=== PATIENT | female | born 2000 | race Caucasian/White ===

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

== ENCOUNTER 2020-12-10 14:50 | Emergency (ER) | payer MEDICAID, OTHER ==
[2020-12-10] MEDS ORDERED: Sodium Chloride 0.9% 1,000 ML IV ONE (14:53)
--- NOTE | 2020-12-10 14:53 | EDM.PDOC ---
ED HPI GENERAL MEDICAL PROBLEM - General Stated Complaint: VOMITING/DIARRHEA Time Seen by Provider: 12/10/20 14:52 Source of Information: Reports: Patient History Limitations: Reports: No Limitations - History of Present Illness INITIAL COMMENTS - FREE TEXT/NARRATIVE: HISTORY AND PHYSICAL: History of present illness: Patient is a 20-year-old female who presents to the emergency room with complaints of nausea, vomiting and diarrhea since last evening around 7 PM. She states earlier in the week her child had had the stomach bug as well, this is resolved. Otherwise has not been around anyone who has been ill. No recent travel. No recent antibiotic usage. Patient denies any fever, chills, headache, change in vision, syncope or near syncope. Denies any chest pain, back pain, shortness of breath or cough. Denies any abdominal pain, constipation or dysuria. Has not noted any blood in urine or stool. States there is a slim chance of . Patient has not been able to eat or drink over the past day. Review of systems: As per history of present illness and below otherwise all systems reviewed and negative. Past medical history: As per history of present illness and as reviewed below otherwise noncontributory. Surgical history: As per history of present illness and as reviewed below otherwise noncontributory. Social history: See social history for further information Family history: As per history of present illness and as reviewed below otherwise noncontributory. Physical exam: General: Well developed and well nourished 20-year-old female. Alert and orientated x 3. Nontoxic in appearance and in no acute distress. Vital signs are stable and have been reviewed by me. Nursing notes were reviewed. HEENT: Atraumatic, normocephalic, pupils equal and reactive bilaterally, negative for conjunctival pallor or scleral icterus, mucous membranes moist, trachea midline. No drooling or trismus noted. No meningeal signs. No hot potato voice noted. Lungs: Clear to auscultation bilaterally. No wheezes, rales, or rhonchi. Chest nontender. Normal work of breathing, no accessory muscles used. Heart: S1S2, regular rate and rhythm without overt murmur, gallops, or rubs. No JVD. No peripheral edema Abdomen: Soft, nondistended, nontender. Normoactive bowel sounds. Negative for masses or costovertebral tenderness. Skin: Intact, warm, dry. No lesions or rashes noted. Hematologic: No petechiae or purpra. Mucosa appropriate color and normal nail bed color and refill. Extremities: Atraumatic, moves all extremities per self without difficulty or deficits. Neurovascular unremarkable. Neuro: Awake, alert, oriented. Cranial nerves II through XII unremarkable. Cerebellum unremarkable. Motor and sensory unremarkable throughout. Exam nonfocal. Psychiatric: Mood and affect are appropriate. Normal thought process. Answering questions appropriately. Notes: *This patient was seen and evaluated during the 2019 SARS-CoV-2 novel coronavirus pandemic period. Community viral transmission is ongoing at time of this encounter and the emergency department is operating under pandemic response procedures. Patient is a 20-year-old female who presents to the emergency room with complaints of nausea, vomiting and diarrhea since last evening. She states she has not been able to keep anything down and does feel slightly dehydrated. States her tummy is sore from the vomiting and diarrhea although has no abdominal tenderness or exquisite pain. She is agreeable to basic lab work and IV fluids/Zofran. Patient was unable to give a stool sample while here in the emergency room. Lab work is unremarkable. Vital signs are stable. She feels much improved. I have talked with the patient about today's findings, in addition to providing specific details for plan of care. Reassessment at the time of disposition demonstrates that the patient is in no acute distress. The patient is stable for discharge, counseling was provided and we discussed in great detail signs and symptoms that would prompt them to return to the Emergency Department. Medication, follow up and supportive care measures were reviewed and discussed. Voices understanding and is agreeable to plan of care. Denies any further questions or concerns at this time. Diagnostics: CBC, CMP, stool study, UA, urine , lipase Therapeutics: IV fluid, Zofran Prescription: Zofran Impression: Gastroenteritis Plan: 1. You were evaluated today on an emergent basis. Your lab work was normal. [place] diet and advance as tolerated. Small frequent sips of fluid to prevent dehydration. You can use the Zofran as needed for nausea management. 2. You can alternate Tylenol and ibuprofen as needed for pain and fever management. 3. We encourage you to follow up with your primary care provider and/or recommended specialist in the next few days for re-evaluation and further care/management. 4. If your symptoms should worsen, new symptoms develop or any of the signs and symptoms we discussed should arise please return to the emergency room or call 911 (if needed). Definitive disposition and diagnosis as appropriate pending reevaluation and review of above. abdomen Pain Score (Numeric/FACES): 4 - Related Data Allergies Allergy/AdvReac Type Severity Reaction Status Date / Time amoxicillin Allergy Rash Verified 12/10/20 15:36 codeine AdvReac Vomiting Verified 12/10/20 15:36 Home Meds: Home Meds Ondansetron [Zofran ODT] 4 mg PO Q6H PRN #8 tab.dis 12/10/20 [Rx] Past Medical History - Past Health History Medical/Surgical History: Denies Medical/Surgical History HEENT History: Reports: Impaired Vision Cardiovascular History: Reports: None Respiratory History: Reports: None Gastrointestinal History: Reports: Chronic Constipation Genitourinary History: Reports: None [employer] History: Reports: Musculoskeletal History: Reports: None Neurological History: Reports: None Psychiatric History: Reports: None Endocrine/Metabolic History: Reports: None Hematologic History: Reports: None Immunologic History: Reports: None Oncologic (Cancer) History: Reports: None Dermatologic History: Reports: None - Infectious Disease History Infectious Disease History: Reports: None - Past Surgical History Head Surgeries/Procedures: Reports: None HEENT Surgical History: Reports: None Cardiovascular Surgical History: Reports: None Respiratory Surgical History: Reports: None GI Surgical History: Reports: Colonoscopy Female Surgical History: Reports: None Endocrine Surgical History: Reports: None Neurological Surgical History: Reports: None Musculoskeletal Surgical History: Reports: None Social & Family History - Family History Family Medical History: No Pertinent Family History HEENT: Reports: None Cardiac: Reports: None Respiratory: Reports: None GI: Reports: Irritable Bowel Syndrome : Reports: None OBGYN: Reports: Musculoskeletal: Reports: None Neurological: Reports: Migraines Psychiatric: Reports: ADD, ADHD, Anxiety, Autism, Bipolar, Depression, Eating Disorders, Emotional Problems, Hallucinations, Mood Swings, OCD, Panic Attack, PTSD, Suicide Attempt Endocrine/Metabolic: Reports: None Hematologic: Reports: None Immunologic: Reports: None Dermatologic: Reports: None Oncologic: Reports: Skin - Caffeine Use Caffeine Use: Reports: Coffee, Soda, Tea ED ROS GENERAL - Review of Systems Review Of Systems: Comprehensive ROS is negative, except as noted in HPI. ED EXAM, GI/ABD - Physical Exam Exam: See Below (See dictation) Course - Vital Signs Last Recorded V/S: Last Vital Signs Temp 98.2 F 12/10/20 16:36 Pulse 98 12/10/20 16:36 Resp 18 12/10/20 16:36 BP 101/61 12/10/20 16:36 Pulse Ox 98 12/10/20 16:36 - Orders/Labs/Meds Orders: Active Orders 24 hr Category Date Time Status CAMPYLOBACTER CULT [MREF] Stat Lab 12/10/20 14:53 Ordered OVA & PARASITES BY IMMUNOASSAY [MREF] Stat Lab 12/10/20 14:53 Ordered STOOL CULTURE/SHIGA TOXIN [MREF] Stat Lab 12/10/20 14:53 Ordered UA W/MICROSCOPIC [URIN] Stat Lab 12/10/20 15:59 Results Labs: Laboratory Tests 12/10/20 12/10/20 12/10/20 Range/Units 15:26 15:26 15:59 WBC 7.94 (4.0-11.0) K/uL RBC 5.15 (4.30-5.90) M/uL Hgb 15.2 (12.0-16.0) g/dL Hct 45.5 (36.0-46.0) % MCV 88.3 (80.0-98.0) fL MCH 29.5 (27.0-32.0) pg MCHC 33.4 (31.0-37.0) g/dL RDW Std Deviation 42.7 (28.0-62.0) fl RDW Coeff of Frank 13 (11.0-15.0) % Plt Count 259 (150-400) K/uL MPV 10.60 (7.40-12.00) fL Add Manual Diff YES Neutrophils % (Manual) 67 (48.0-80.0) % Band Neutrophils % 14 % Lymphocytes % (Manual) 10 L (16.0-40.0) % Monocytes % (Manual) 9 (0.0-15.0) % Absolute Seg Neuts 5.3 (1.4-5.7) Band Neutrophils # 1.1 Lymphocytes # (Manual) 0.8 (0.6-2.4) Monocytes # (Manual) 0.7 (0.0-0.8) Sodium 139 (136-145) mmol/L Potassium 3.9 (3.5-5.1) mmol/L Chloride 103 (98-107) mmol/L Carbon Dioxide 25.0 (21.0-32.0) mmol/L BUN 17 (7.0-18.0) mg/dL Creatinine 0.8 (0.6-1.0) mg/dL Est Cr Clr Drug Dosing 92.37 mL/min Estimated GFR (MDRD) > 60.0 ml/min Glucose 96 (74-106) mg/dL Calcium 8.6 (8.5-10.1) mg/dL Total Bilirubin 0.6 (0.2-1.0) mg/dL AST 17 (15-37) IU/L ALT 26 (14-63) IU/L Alkaline Phosphatase 68 (46-116) U/L Total Protein 7.8 (6.4-8.2) g/dL Albumin 3.8 (3.4-5.0) g/dL Globulin 4.0 (2.6-4.0) g/dL Albumin/Globulin Ratio 0.9 (0.9-1.6) Lipase 43 L (73-393) U/L Urine Color YELLOW Urine Appearance CLEAR Urine pH 5.5 (5.0-8.0) Ur Specific [place] >= 1.030 (1.001-1.035) Urine Protein TRACE H (NEGATIVE) mg/dL Urine Glucose (UA) NEGATIVE (NEGATIVE) mg/dL Urine Ketones TRACE H (NEGATIVE) mg/dL Urine Occult Blood NEGATIVE (NEGATIVE) Urine Nitrite NEGATIVE (NEGATIVE) Urine Bilirubin NEGATIVE (NEGATIVE) Urine Urobilinogen 0.2 (<2.0) EU/dL Ur Leukocyte Esterase NEGATIVE (NEGATIVE) Urine HCG, Qual (NEGATIVE) 12/10/20 Range/Units 15:59 WBC (4.0-11.0) K/uL RBC (4.30-5.90) M/uL Hgb (12.0-16.0) g/dL Hct (36.0-46.0) % MCV (80.0-98.0) fL MCH (27.0-32.0) pg MCHC (31.0-37.0) g/dL RDW Std Deviation (28.0-62.0) fl RDW Coeff of Frank (11.0-15.0) % Plt Count (150-400) K/uL MPV (7.40-12.00) fL Add Manual Diff Neutrophils % (Manual) (48.0-80.0) % Band Neutrophils % % Lymphocytes % (Manual) (16.0-40.0) % Monocytes % (Manual) (0.0-15.0) % Absolute Seg Neuts (1.4-5.7) Band Neutrophils # Lymphocytes # (Manual) (0.6-2.4) Monocytes # (Manual) (0.0-0.8) Sodium (136-145) mmol/L Potassium (3.5-5.1) mmol/L Chloride (98-107) mmol/L Carbon Dioxide (21.0-32.0) mmol/L BUN (7.0-18.0) mg/dL Creatinine (0.6-1.0) mg/dL Est Cr Clr Drug Dosing mL/min Estimated GFR (MDRD) ml/min Glucose (74-106) mg/dL Calcium (8.5-10.1) mg/dL Total Bilirubin (0.2-1.0) mg/dL AST (15-37) IU/L ALT (14-63) IU/L Alkaline Phosphatase (46-116) U/L Total Protein (6.4-8.2) g/dL Albumin (3.4-5.0) g/dL Globulin (2.6-4.0) g/dL Albumin/Globulin Ratio (0.9-1.6) Lipase (73-393) U/L Urine Color Urine Appearance Urine pH (5.0-8.0) Ur Specific [place] (1.001-1.035) Urine Protein (NEGATIVE) mg/dL Urine Glucose (UA) (NEGATIVE) mg/dL Urine Ketones (NEGATIVE) mg/dL Urine Occult Blood (NEGATIVE) Urine Nitrite (NEGATIVE) Urine Bilirubin (NEGATIVE) Urine Urobilinogen (<2.0) EU/dL Ur Leukocyte Esterase (NEGATIVE) Urine HCG, Qual NEGATIVE (NEGATIVE) Meds: Medications Discontinued Medications Generic Name Dose Route Start Last Admin Trade Name Freq PRN Reason Stop Dose Admin Sodium Chloride 1,000 mls @ 999 mls/hr 12/10/20 14:53 12/10/20 15:31 Normal Saline IV 12/10/20 15:53 999 mls/hr STAT ONE Administration Ondansetron HCl 4 mg 12/10/20 15:23 12/10/20 15:32 Ondansetron 4 Mg/2 Ml Sdv IVPUSH 12/10/20 15:24 4 mg ONETIME ONE Administration Departure - Departure Time of Disposition: 16:41 Disposition: Home, Self-Care 01 Clinical Impression: Gastroenteritis - Discharge Information Prescriptions: Ondansetron [Zofran ODT] 4 mg PO Q6H PRN #8 tab.dis PRN Reason: Nausea Instructions: Viral Gastroenteritis, Adult, [id number] Referrals: PCP,None [Primary Care Provider] - Additional Instructions: The following information is given to patients seen in the emergency department who are being discharged to home. This information is to outline your options for follow-up care. We provide all patients seen in our emergency department with a follow-up referral. The need for follow-up, as well as the timing and circumstances, are variable depending upon the specifics of your emergency department visit. If you don't have a primary care physician on staff, we will provide you with a referral. We always advise you to contact your personal physician following an emergency department visit to inform them of the circumstance of the visit and for follow-up with them and/or the need for any referrals to a consulting specialist. The emergency department will also refer you to a specialist when appropriate. This referral assures that you have the opportunity for follow-up care with a specialist. All of these measure are taken in an effort to provide you with optimal care, which includes your follow-up. Under all circumstances we always encourage you to contact your private physician who remains a resource for coordinating your care. When calling for follow-up care, please make the office aware that this follow-up is from your recent emergency room visit. If for any reason you are refused follow-up, please contact the [facility] Emergency Department at and asked to speak to the emergency department charge nurse. [facility] [address] [place] [address] [address] Thank you for choosing the [facility] emergency department in [place] for your medical needs today. It was a pleasure caring for you. Today you were seen in the emergency department for nausea and vomiting. 1. You were evaluated today on an emergent basis. Your lab work was normal. [place] diet and advance as tolerated. Small frequent sips of fluid to prevent dehydration. You can use the Zofran as needed for nausea management. 2. You can alternate Tylenol and ibuprofen as needed for pain and fever management. 3. We encourage you to follow up with your primary care provider and/or recommended specialist in the next few days for re-evaluation and further care/management. 4. If your symptoms should worsen, new symptoms develop or any of the signs and symptoms we discussed should arise please return to the emergency room or call 911 (if needed). Sepsis Event Note (ED) - Focused Exam Vital Signs: Vital Signs Temp Pulse Resp BP Pulse Ox 12/10/20 16:36 98.2 F 98 18 101/61 98 12/10/20 15:34 98.1 F 114 H 16 125/62 99 - My Orders Last 24 Hours: My Active Orders 12/10/20 14:53 CAMPYLOBACTER CULT [MREF] Stat OVA & PARASITES BY IMMUNOASSAY [MREF] Stat STOOL CULTURE/SHIGA TOXIN [MREF] Stat 12/10/20 15:59 UA W/MICROSCOPIC [URIN] Stat - Assessment/Plan Last 24 Hours: My Active Orders 12/10/20 14:53 CAMPYLOBACTER CULT [MREF] Stat OVA & PARASITES BY IMMUNOASSAY [MREF] Stat STOOL CULTURE/SHIGA TOXIN [MREF] Stat 12/10/20 15:59 UA W/MICROSCOPIC [URIN] Stat
[2020-12-10] MEDS ORDERED: Ondansetron 4 MG/2 ML SDV IVPUSH ONE (15:23)
[2020-12-10 16:39] LABS: BLOOD UREA NITROGEN,BUN 17 mg/dL (7.0-18.0); CHLORIDE,CL 103 mmol/L (98-107); GLUCOSE RANDOM 96 mg/dL (74-106); LIPASE 43 U/L (73-393); POTASSIUM,K 3.9 mmol/L (3.5-5.1); SODIUM,NA 139 mmol/L (136-145)
[2020-12-10 17:38] VITALS: BP 118/72; PULSE 78
== END 2020-12-10 16:50 | disposition home or self-care (01) ==
LOC: MW.ED 14:50
DX: K52.9 Noninfective gastroenteritis and colitis, unspecified (principal); Z88.0 Allergy status to penicillin; Z88.5 Allergy status to narcotic agent
CPT/HCPCS: 36415; 80053; 81001; 81025; 83690; 85025; 96374; 99284; J2405; J7030; 99283

== ENCOUNTER 2021-06-10 16:56 | Emergency (ER) | payer MEDICAID, OTHER ==
[2021-06-10] MEDS ORDERED: Morphine 4 MG/ML VIAL IVPUSH ONE (17:10)
[2021-06-10] MEDS ORDERED: Ketorolac 30 MG/ML SDV IVPUSH ONE (17:10)
[2021-06-10] MEDS ORDERED: Ondansetron 4 MG/2 ML SDV IVPUSH ONE (17:10)
--- NOTE | 2021-06-10 17:13 | EDM.PDOC ---
<Phillip Correa - Last Filed: 06/10/21 18:55> ED HPI GENERAL MEDICAL PROBLEM - General Chief Complaint: Abdominal Pain Stated Complaint: SEVERE STOMACH PAIN Time Seen by Provider: 06/10/21 16:58 Source of Information: Reports: Patient History Limitations: Reports: No Limitations - History of Present Illness INITIAL COMMENTS - FREE TEXT/NARRATIVE: 21-year-old female no past medical history last menstrual period 1 week ago presents for sudden onset abdominal pain. Patient states that she was in normal state of health this morning and afternoon. She was on her work break when around 30 minutes prior to arrival she got a 10 out of 10 lower abdominal pain radiating to her low back. Is worse in her left suprapubic region although it does radiate to the right. She notes her last bowel movement yesterday was normal. She feels nauseated but has not had any vomiting. She denies any urinary symptoms, specifically hematuria, dysuria, dark or cloudy urine. She has never had any abdominal surgeries. She has never had similar symptoms in the past. abdomen Pain Score (Numeric/FACES): 7 - Related Data Allergies Allergy/AdvReac Type Severity Reaction Status Date / Time amoxicillin Allergy Rash Verified 12/10/20 15:36 codeine AdvReac Vomiting Verified 12/10/20 15:36 Home Meds: Home Meds Ondansetron [Zofran ODT] 4 mg PO Q6H PRN #8 tab.dis 12/10/20 [Rx] Past Medical History - Past Health History Medical/Surgical History: Denies Medical/Surgical History HEENT History: Reports: Impaired Vision Cardiovascular History: Reports: None Respiratory History: Reports: None Gastrointestinal History: Reports: Chronic Constipation Genitourinary History: Reports: None [employer] History: Reports: Musculoskeletal History: Reports: None Neurological History: Reports: None Psychiatric History: Reports: None Endocrine/Metabolic History: Reports: None Hematologic History: Reports: None Immunologic History: Reports: None Oncologic (Cancer) History: Reports: None Dermatologic History: Reports: None - Infectious Disease History Infectious Disease History: Reports: None - Past Surgical History Head Surgeries/Procedures: Reports: None HEENT Surgical History: Reports: None Cardiovascular Surgical History: Reports: None Respiratory Surgical History: Reports: None GI Surgical History: Reports: Colonoscopy Female Surgical History: Reports: None Endocrine Surgical History: Reports: None Neurological Surgical History: Reports: None Musculoskeletal Surgical History: Reports: None Social & Family History - Family History Family Medical History: No Pertinent Family History HEENT: Reports: None Cardiac: Reports: None Respiratory: Reports: None GI: Reports: Irritable Bowel Syndrome : Reports: None OBGYN: Reports: Musculoskeletal: Reports: None Neurological: Reports: Migraines Psychiatric: Reports: ADD, ADHD, Anxiety, Autism, Bipolar, Depression, Eating Disorders, Emotional Problems, Hallucinations, Mood Swings, OCD, Panic Attack, PTSD, Suicide Attempt Endocrine/Metabolic: Reports: None Hematologic: Reports: None Immunologic: Reports: None Dermatologic: Reports: None Oncologic: Reports: Skin - Caffeine Use Caffeine Use: Reports: Coffee, Soda, Tea ED ROS GENERAL - Review of Systems Review Of Systems: Comprehensive ROS is negative, except as noted in HPI. ED EXAM, GENERAL - Physical Exam Exam: See Below Exam Limited By: No Limitations General Appearance: Alert, WD/WN, Other (Uncomfortable appearing, holding abdomen, leaning forward in chair) Ears: Hearing Grossly Normal Throat/Mouth: Normal Voice, No Airway Compromise Head: Atraumatic, Normocephalic Respiratory/Chest: No Respiratory Distress, Lungs Clear, Normal Breath Sounds, No Accessory Muscle Use GI/Abdominal: Soft, Other (Tenderness to palpation with guarding of left lower and right lower abdomen left greater than right) Back Exam: Normal Inspection. No: CVA Tenderness (L), CVA Tenderness (R), Vertebral Tenderness Extremities: Normal Inspection Neurological: Alert, Normal Cognition, Normal Gait Psychiatric: Anxious Skin Exam: Warm, Dry, Intact, Normal Color Course - Re-Assessments/Exams Free Text/Narrative Re-Assessment/Exam: 06/10/21 17:12 We will treat pain and nausea. Will give IV fluid bolus. Will get basic labs. Will get pelvic ultrasound to rule out ovarian torsion. 06/10/21 18:15 Patient's pain is substantially improved after Toradol and morphine. She has still been unable to provide a urine sample, patient was given a large glass of water. Patient does note that roughly 5 days ago she had sexual intercourse on her menstrual cycle and that the last time that happened she developed a urinary tract infection and today symptoms seem similar to her. We will follow up ultrasonography results and urinalysis for disposition. 06/10/21 18:42 Ultrasound is unremarkable. Will follow-up urinalysis for disposition. 06/10/21 19:00 Patient care transitioned to [facility] [place] pending urinalysis and reassessment. Departure - Departure Disposition: Home, Self-Care 01 Clinical Impression: Abdominal pain - Discharge Information Instructions: Abdominal Pain, Adult, [id number] Referrals: Carlo Pisano MD [Primary Care Provider] - Forms: ED Department Discharge Additional Instructions: The following information is given to patients seen in the emergency department who are being discharged to home. This information is to outline your options for follow-up care. We provide all patients seen in our emergency department with a follow-up referral. The need for follow-up, as well as the timing and circumstances, are variable depending upon the specifics of your emergency department visit. If you don't have a primary care physician on staff, we will provide you with a referral. We always advise you to contact your personal physician following an emergency department visit to inform them of the circumstance of the visit and for follow-up with them and/or the need for any referrals to a consulting specialist. The emergency department will also refer you to a specialist when appropriate. This referral assures that you have the opportunity for follow-up care with a specialist. All of these measure are taken in an effort to provide you with optimal care, which includes your follow-up. Under all circumstances we always encourage you to contact your private physician who remains a resource for coordinating your care. When calling for follow-up care, please make the office aware that this follow-up is from your recent emergency room visit. If for any reason you are refused follow-up, please contact the [facility] Emergency Department at and asked to speak to the emergency department charge nurse. [facility] [address] [place] [id number] [address] Thank you for choosing the [facility] emergency department in [place] for your medical needs today. It was a pleasure caring for you. Today you were seen in the emergency department for abdominal pain 1. Your lab work and ultrasound are normal. [place] diet, advance as tolerated. 2. You can alternate Tylenol and ibuprofen as needed for pain management. 3. Please follow-up with your primary care provider for reevaluation. 4. If your symptoms should worsen, new symptoms develop or at any time you feel comfortable you may return to the emergency room for reevaluation. <Isaac Cruz E - Last Filed: 06/10/21 19:36> ED HPI GENERAL MEDICAL PROBLEM - History of Present Illness INITIAL COMMENTS - FREE TEXT/NARRATIVE: I assumed care of this patient at 1900. Patient presented to the emergency room with complaints of left lower quadrant abdominal pain. Patient did receive basic lab work and ultrasound. At the time of assuming care the urinalysis was pending. Lab work is unremarkable. Patient is negative for bladder infection. Ultrasound is normal ultrasound examination of the female pelvis using transv aginal and transabdominal technique. No sign of ovarian torsion. Discharge instructions were reviewed with patient. She voices understanding and is agreeable to plan of care. Denies any further questions or concerns at this time. Course - Vital Signs Last Recorded V/S: Last Vital Signs Temp 97.4 F 06/10/21 17:15 Pulse 84 06/10/21 17:15 Resp 18 06/10/21 17:15 BP 147/64 H 06/10/21 17:15 Pulse Ox 96 06/10/21 17:15 - Orders/Labs/Meds Orders: Active Orders 24 hr Category Date Time Status Saline Lock Insert [OM.PC] Stat Oth 06/10/21 17:06 Ordered Labs: Laboratory Tests 06/10/21 06/10/21 06/10/21 Range/Units 17:21 17:21 17:21 WBC 9.09 (4.0-11.0) K/uL RBC 4.62 (4.30-5.90) M/uL Hgb 14.1 (12.0-16.0) g/dL Hct 41.8 (36.0-46.0) % MCV 90.5 (80.0-98.0) fL MCH 30.5 (27.0-32.0) pg MCHC 33.7 (31.0-37.0) g/dL RDW Std Deviation 44.6 (28.0-62.0) fl RDW Coeff of Frank 14 (11.0-15.0) % Plt Count 327 (150-400) K/uL MPV 10.10 (7.40-12.00) fL Neut % (Auto) 70.5 (48.0-80.0) % Lymph % (Auto) 21.6 (16.0-40.0) % Hale % (Auto) 7.2 (0.0-15.0) % Eos % (Auto) 0.6 (0.0-7.0) % Baso % (Auto) 0.1 (0.0-1.5) % Neut # (Auto) 6.4 H (1.4-5.7) K/uL Lymph # (Auto) 2.0 (0.6-2.4) K/uL Hale # (Auto) 0.7 (0.0-0.8) K/uL Eos # (Auto) 0.1 (0.0-0.7) K/uL Baso # (Auto) 0.0 (0.0-0.1) K/uL Nucleated RBC % 0.0 /100WBC Nucleated RBCs # 0 K/uL Sodium 140 (136-145) mmol/L Potassium 4.0 (3.5-5.1) mmol/L Chloride 102 (98-107) mmol/L Carbon Dioxide 25.1 (21.0-32.0) mmol/L BUN 12 (7.0-18.0) mg/dL Creatinine 0.8 (0.6-1.0) mg/dL Est Cr Clr Drug Dosing 95.59 mL/min Estimated GFR (MDRD) > 60.0 ml/min Glucose 97 (74-106) mg/dL Lactic Acid 1.1 (0.4-2.0) mmol/L Calcium 9.5 (8.5-10.1) mg/dL Total Bilirubin 0.4 (0.2-1.0) mg/dL AST 17 (15-37) IU/L ALT 18 (14-63) IU/L Alkaline Phosphatase 67 (46-116) U/L Total Protein 8.1 (6.4-8.2) g/dL Albumin 4.3 (3.4-5.0) g/dL Globulin 3.8 (2.6-4.0) g/dL Albumin/Globulin Ratio 1.1 (0.9-1.6) Lipase 68 L (73-393) U/L HCG, Qual (NEG) Urine Color Urine Appearance Urine pH (5.0-8.0) Ur Specific [place] (1.001-1.035) Urine Protein (NEGATIVE) mg/dL Urine Glucose (UA) (NEGATIVE) mg/dL Urine Ketones (NEGATIVE) mg/dL Urine Occult Blood (NEGATIVE) Urine Nitrite (NEGATIVE) Urine Bilirubin (NEGATIVE) Urine Urobilinogen (<2.0) EU/dL Ur Leukocyte Esterase (NEGATIVE) Urine RBC (0-2/HPF) Urine WBC (0-5/HPF) Ur Epithelial Cells (NONE-FEW) Urine Bacteria (NEGATIVE) 06/10/21 06/10/21 Range/Units 17:21 19:09 WBC (4.0-11.0) K/uL RBC (4.30-5.90) M/uL Hgb (12.0-16.0) g/dL Hct (36.0-46.0) % MCV (80.0-98.0) fL MCH (27.0-32.0) pg MCHC (31.0-37.0) g/dL RDW Std Deviation (28.0-62.0) fl RDW Coeff of Frank (11.0-15.0) % Plt Count (150-400) K/uL MPV (7.40-12.00) fL Neut % (Auto) (48.0-80.0) % Lymph % (Auto) (16.0-40.0) % Hale % (Auto) (0.0-15.0) % Eos % (Auto) (0.0-7.0) % Baso % (Auto) (0.0-1.5) % Neut # (Auto) (1.4-5.7) K/uL Lymph # (Auto) (0.6-2.4) K/uL Hale # (Auto) (0.0-0.8) K/uL Eos # (Auto) (0.0-0.7) K/uL Baso # (Auto) (0.0-0.1) K/uL Nucleated RBC % /100WBC Nucleated RBCs # K/uL Sodium (136-145) mmol/L Potassium (3.5-5.1) mmol/L Chloride (98-107) mmol/L Carbon Dioxide (21.0-32.0) mmol/L BUN (7.0-18.0) mg/dL Creatinine (0.6-1.0) mg/dL Est Cr Clr Drug Dosing mL/min Estimated GFR (MDRD) ml/min Glucose (74-106) mg/dL Lactic Acid (0.4-2.0) mmol/L Calcium (8.5-10.1) mg/dL Total Bilirubin (0.2-1.0) mg/dL AST (15-37) IU/L ALT (14-63) IU/L Alkaline Phosphatase (46-116) U/L Total Protein (6.4-8.2) g/dL Albumin (3.4-5.0) g/dL Globulin (2.6-4.0) g/dL Albumin/Globulin Ratio (0.9-1.6) Lipase (73-393) U/L HCG, Qual NEGATIVE (NEG) Urine Color YELLOW Urine Appearance CLEAR Urine pH 6.5 (5.0-8.0) Ur Specific [place] 1.010 (1.001-1.035) Urine Protein NEGATIVE (NEGATIVE) mg/dL Urine Glucose (UA) NEGATIVE (NEGATIVE) mg/dL Urine Ketones NEGATIVE (NEGATIVE) mg/dL Urine Occult Blood NEGATIVE (NEGATIVE) Urine Nitrite NEGATIVE (NEGATIVE) Urine Bilirubin NEGATIVE (NEGATIVE) Urine Urobilinogen 0.2 (<2.0) EU/dL Ur Leukocyte Esterase TRACE H (NEGATIVE) Urine RBC 0-1 (0-2/HPF) Urine WBC 0-2 (0-5/HPF) Ur Epithelial Cells RARE (NONE-FEW) Urine Bacteria FEW (NEGATIVE) Meds: Medications Discontinued Medications Generic Name Dose Route Start Last Admin Trade Name Freq PRN Reason Stop Dose Admin Ketorolac Tromethamine 15 mg 06/10/21 17:10 06/10/21 17:26 Ketorolac 30 Mg/Ml Sdv IVPUSH 06/10/21 17:11 15 mg ONETIME ONE Administration Morphine Sulfate 4 mg 06/10/21 17:10 06/10/21 17:26 Morphine 4 Mg/Ml Vial IVPUSH 06/10/21 17:11 4 mg ONETIME ONE Administration Ondansetron HCl 4 mg 06/10/21 17:10 06/10/21 17:26 Ondansetron 4 Mg/2 Ml Sdv IVPUSH 06/10/21 17:11 4 mg ONETIME ONE Administration Departure - Departure Time of Disposition: 19:32 Sepsis Event Note (ED) - Focused Exam Vital Signs: Vital Signs Temp Pulse Resp BP Pulse Ox 06/10/21 17:15 97.4 F 84 18 147/64 H 96
[2021-06-10 17:52] LABS: BLOOD UREA NITROGEN,BUN 12 mg/dL (7.0-18.0); CARBON DIOXIDE,CO2 25.1 mmol/L (21.0-32.0); CHLORIDE,CL 102 mmol/L (98-107); GLUCOSE RANDOM 97 mg/dL (74-106); LIPASE 68 U/L (73-393); SODIUM,NA 140 mmol/L (136-145)
--- NOTE | 2021-06-10 18:36 | US ---
INDICATION: Possible torsion. Bilateral lower abdominal pain. COMPARISON: None available. FINDINGS: Transvaginal and transabdominal ultrasound examination of the female pelvis was performed. Initial examination is performed with transabdominal technique and transvaginal technique is used for better visualization of the pelvic structures. The uterus is retroflexed with no evidence of mass. It measures 7.0 x 3.5 x 4.6 cm. The endometrial lining is normal in thickness at 6 mm. The ovaries are normal in appearance and size, the right measuring 3.8 x 2.7 x 2.2 cm and the left measuring 2.7 x 2.2 x 1.6 cm. There is normal color and pulse doppler flow in both ovaries. There is a tiny amount of fluid in the cul-de-sac which is probably physiologic. IMPRESSION: Normal ultrasound examination of the female pelvis using transvaginal and transabdominal technique. No sign of ovarian torsion. Dictated by Cosme Khalil MD @ 06/10/2021 6:34:26 PM (Electronically Signed)
[2021-06-11 00:18] VITALS: BP 121/78; PULSE 73
== END 2021-06-10 19:40 | disposition home or self-care (01) ==
LOC: MW.ED 16:56
DX: R10.32 Left lower quadrant pain (principal); R10.31 Right lower quadrant pain; Z88.0 Allergy status to penicillin; Z88.5 Allergy status to narcotic agent
CPT/HCPCS: 36415; 76857; 80053; 81001; 83605; 83690; 84703; 85025; 96374; 96375; 99284; J1885; J2270; J2405

== ENCOUNTER 2021-06-22 01:31 | Emergency (ER) | payer MEDICAID ==
[2021-06-22 02:28] LABS: ACETAMINOPHEN <2.0 ug/mL; BLOOD UREA NITROGEN,BUN 10 mg/dL (7.0-18.0); CARBON DIOXIDE,CO2 24.9 mmol/L (21.0-32.0); CHLORIDE,CL 106 mmol/L (98-107); GLUCOSE RANDOM 110 mg/dL (74-106); POTASSIUM,K 3.7 mmol/L (3.5-5.1); SODIUM,NA 143 mmol/L (136-145)
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
[2021-06-22 05:16] VITALS: BP 108/64; PULSE 102
== END 2021-06-22 05:12 | disposition home or self-care (01) ==
LOC: MW.ED 01:31
DX: F10.920 Alcohol use, unspecified with intoxication, uncomplicated (principal); Z88.8 Allergy status to other drugs, medicaments and biological substances; Y90.6 Blood alcohol level of 120-199 mg/100 ml
CPT/HCPCS: 36415; 80053; 80143; 80179; 80305-QW; 80307; 81001; 81025; 83735; 85025; 93005; 99284-25

== ENCOUNTER 2021-09-14 01:14 | Emergency (ER) | payer MEDICAID ==
[2021-09-14 01:37] VITALS: BP 121/72
[2021-09-14 02:07] LABS: CORONAVIRUS COVID-19 NAA NEGATIVE (NEGATIVE); INFLUENZA A NAA POSITIVE (NEGATIVE); INFLUENZA B NAA NEGATIVE (NEGATIVE)
[2021-09-14 02:35] VITALS: PULSE 100
== END 2021-09-14 02:20 | disposition home or self-care (01) ==
LOC: MW.ED 01:14
DX: J10.1 Influenza due to other identified influenza virus with other respiratory manifestations (principal); Z20.822 Contact with and (suspected) exposure to COVID-19; Z88.0 Allergy status to penicillin; Z88.5 Allergy status to narcotic agent
CPT/HCPCS: 0240U; 87651; 99284; 99283

== ENCOUNTER 2022-01-02 19:27 | Day surgery (SDC) | payer MEDICAID ==
[2022-01-02] MEDS ORDERED: Sodium Chloride 0.9% 2.5 ML Syringe FLUSH PRN (19:55)
[2022-01-02] MEDS ORDERED: Sodium Chloride 0.9% 10 ML Syringe FLUSH PRN (19:55)
[2022-01-02] MEDS ORDERED: Ondansetron 4 MG/2 ML SDV IVPUSH ONE ×2 (19:56→23:23)
[2022-01-02] MEDS ORDERED: Acetaminophen 500 MG Tab PO ONE (19:56)
[2022-01-02] MEDS ORDERED: Sodium Chloride 0.9% 1,000 ML IV ONE (19:56)
[2022-01-02 20:45] LABS: POTASSIUM,K 3.5 mmol/L (3.5-5.1)
[2022-01-03] MEDS ORDERED: Sodium Chloride 0.9% 2.5 ML Syringe FLUSH PRN (00:06)
[2022-01-03] MEDS ORDERED: Sodium Chloride 0.9% 10 ML Syringe FLUSH PRN (00:06)
[2022-01-03] MEDS ORDERED: Sodium Chloride 0.9% 20 ML SDV IV PRN (00:06)
[2022-01-03] MEDS ORDERED: Propofol 200 MG/20 ML SDV ONE ×2 (00:19→02:36)
[2022-01-03] MEDS ORDERED: Midazolam 1 MG/ML 2 ML SDV ONE (00:19)
[2022-01-03] MEDS ORDERED: fentaNYL 100 MCG/2 ML SDV ONE ×2 (00:19→02:25)
[2022-01-03] MEDS ORDERED: Lidocaine 2% 5 ML SDV ONE (00:21)
[2022-01-03] MEDS ORDERED: Metoclopramide 10 MG/2 ML SDV ONE (00:22)
[2022-01-03] MEDS ORDERED: Ondansetron 4 MG/2 ML SDV ONE (00:22)
[2022-01-03] MEDS ORDERED: Succinylcholine/Sod PF 100 MG/5 ML SYRINGE IV ONE (00:24)
[2022-01-03] MEDS ORDERED: Rocuronium 100 MG/10 ML MDV ONE (00:25)
[2022-01-03] MEDS ORDERED: Bupivacaine 0.25% 10 ML SDV ONE (00:26)
[2022-01-03] MEDS ORDERED: Octyl 2-Cyanoacrylate 1 Tube ONE (00:26)
[2022-01-03] MEDS ORDERED: Bupivacaine 0.25%/EPINEPHrine 1:200,000 10 ML SDV ONE (00:26)
[2022-01-03] MEDS ORDERED: Bupivacaine 0.5% 10 ML SDV ONE (00:26)
[2022-01-03] MEDS ORDERED: Vasopressin 20 Units/1 ML MDV ONE (00:28)
[2022-01-03] MEDS ORDERED: HYDROmorphone 2 MG/ML Syringe ONE (02:27)
[2022-01-03] MEDS ORDERED: Ketorolac 30 MG/ML SDV ONE (02:29)
[2022-01-03] MEDS ORDERED: Sugammadex Sodium 200 MG/2 ML VIAL ONE (02:30)
[2022-01-03 04:26] VITALS: BP 111/73; PULSE 86
== END 2022-01-03 04:20 | disposition home or self-care (01) ==
LOC: MW.ED 19:27 → MW.SDS 01-03 01:02 → MW.MS 01-03 03:14 → MW.SDS 01-03 04:20
PROVIDERS: ATTEND Obstetrics & Gynecology
DX: O00.102 Left tubal pregnancy without intrauterine pregnancy (principal); O99.619 Diseases of the digestive system complicating pregnancy, unspecified trimester; K66.1 Hemoperitoneum; O34.80 Maternal care for other abnormalities of pelvic organs, unspecified trimester; N83.201 Unspecified ovarian cyst, right side; O99.350 Diseases of the nervous system complicating pregnancy, unspecified trimester; F41.9 Anxiety disorder, unspecified; F32.A Depression, unspecified; Z88.0 Allergy status to penicillin; Z88.5 Allergy status to narcotic agent
CPT/HCPCS: 00840; 36415; 76801; 76801-26; 80053; 81003; 83690; 84702; 85025; 86850; 86900; 86901; 96361; 96374; 96376; 99284; 99285-25; A9270-GY; J0131; J0330; J1170; J1885; J2250; J2405; J2704; J2765; J3010; J3490; J7030

== ENCOUNTER 2022-01-03 13:04 | Emergency (ER) | payer MEDICAID ==
[2022-01-03] MEDS ORDERED: Ondansetron 4 MG/2 ML SDV IVPUSH ONE (13:10)
[2022-01-03] MEDS ORDERED: Sodium Chloride 0.9% 1,000 ML IV ONE (13:10)
[2022-01-03] MEDS ORDERED: Morphine 4 MG/ML VIAL IVPUSH ONE ×2 (13:10→13:58)
[2022-01-03] MEDS ORDERED: Iopamidol 755 MG/ML 500 ML Multipack Bottle IVPUSH STA (13:50)
[2022-01-03 14:29] LABS: BLOOD UREA NITROGEN,BUN 9 mg/dL (7.0-18.0); CHLORIDE,CL 106 mmol/L (98-107); GLUCOSE RANDOM 129 mg/dL (74-106); LIPASE 54 U/L (73-393); POTASSIUM,K 3.7 mmol/L (3.5-5.1); SODIUM,NA 137 mmol/L (136-145)
[2022-01-03 14:41] LABS: ESTIMATED GFR 107 mL/min (>60)
[2022-01-03] MEDS ORDERED: Acetaminophen/oxyCODONE 325-5 MG Tab PO ONE (15:38)
[2022-01-03 15:46] VITALS: BP 116/64; PULSE 102
== END 2022-01-03 15:50 | disposition home or self-care (01) ==
LOC: MW.ED 13:04
DX: G89.18 Other acute postprocedural pain (principal); Z88.0 Allergy status to penicillin; Z88.5 Allergy status to narcotic agent
CPT/HCPCS: 36415; 71275; 74177; 80053; 81003; 83605; 83690; 83735; 84484; 85025; 93005; 96361; 96374; 96375; 96376; 99285; A9270; J2270; J2405; J7030; Q9967; 93010; 99283

== ENCOUNTER 2022-08-30 05:17 | Inpatient (IN) | payer MEDICAID ==
[2022-08-30] MEDS ORDERED: Tranexamic Acid 1,000 MG in Sodium Chloride 0.9% 100 ML IV PRN ×2 (05:36→18:32)
[2022-08-30] MEDS ORDERED: Sodium Chloride 0.9% 10 ML Syringe FLUSH PRN (05:36)
[2022-08-30] MEDS ORDERED: Methylergonovine 0.2 MG/1 ML Amp IM PRN ×2 (05:36→18:32)
[2022-08-30] MEDS ORDERED: Misoprostol 200 MCG Tab PO PRN (05:36)
[2022-08-30] MEDS ORDERED: Sodium Chloride 0.9% 20 ML SDV IV PRN (05:36)
[2022-08-30] MEDS ORDERED: Lidocaine 1% 50 ML MDV INJECT PRN (05:36)
[2022-08-30] MEDS ORDERED: Terbutaline 1 MG/ML SDV SUBCUT PRN (05:36)
[2022-08-30] MEDS ORDERED: Water For Irrigation,Sterile 1,000 ML Container IRR PRN (05:36)
[2022-08-30] MEDS ORDERED: Carboprost Tromethamine 250 MCG/1 ML Amp IM PRN (05:36)
[2022-08-30] MEDS ORDERED: Sodium Chloride 0.9% 2.5 ML Syringe FLUSH PRN (05:36)
[2022-08-30] MEDS ORDERED: Butorphanol 1 MG/ML SDV IVPUSH PRN (05:36)
[2022-08-30] MEDS ORDERED: Oxytocin/0.9 % Sodium Chloride 30 UNIT/500 ML BAG IV SCH ×2 (05:45)
[2022-08-30] MEDS: Lactated Ringers 1,000 ML IV SCH ×2 (06:59→13:38)
[2022-08-30] MEDS ORDERED: ePHEDrine 50 MG/ML SDV IVPUSH PRN ×2 (08:28)
[2022-08-30] MEDS ORDERED: Phenylephrine HCl In 0.9% NaCl 1 MG/10 ML Vial IVPUSH PRN (08:28)
[2022-08-30] MEDS ORDERED: Ropivacaine HCl/PF 400 MG in Premix Bag 1 BAG EPIDUR SCH (08:30)
[2022-08-30] MEDS ORDERED: Dexmedetomidine 200 MCG/2 ML SDV ONE (13:05)
[2022-08-30] MEDS ORDERED: Phenylephrine HCl 0.5 MG/5 ML AMP ONE (13:05)
[2022-08-30] MEDS ORDERED: Lanolin 100% Cream 7 GM Tube TOP PRN (18:32)
[2022-08-30] MEDS ORDERED: Acetaminophen 500 MG Tab PO PRN (18:32)
[2022-08-30] MEDS ORDERED: Bisacodyl 10 MG Supp RECTAL PRN (18:32)
[2022-08-30] MEDS ORDERED: Docusate Sodium 100 MG Cap PO PRN (18:32)
[2022-08-30] MEDS ORDERED: Ibuprofen 400 MG Tab PO PRN (18:32)
[2022-08-30] MEDS ORDERED: Benzocaine/Menthol 20%-0.5% Spray 78 GM Cannister TOP PRN (18:32)
[2022-08-30] MEDS: Witch Hazel Medicated Pads 40/Jar TOP PRN (21:58)
[2022-08-30] MEDS: Ibuprofen 800 MG Tab PO PRN (23:43)
[2022-08-30] MEDS: Acetaminophen 500 MG Tab PO PRN (23:46)
[2022-08-31] MEDS: Ibuprofen 800 MG Tab PO PRN ×3 (06:16→18:40)
[2022-08-31] MEDS: Acetaminophen 500 MG Tab PO PRN ×2 (08:26→16:04)
[2022-08-31] MEDS: Prenatal Multivitamin with Calcium/Folic Acid/Iron Tab PO SCH (09:28)
[2022-08-31] MEDS: Phenylephrine HCl In 0.9% NaCl 1 MG/10 ML Vial IVPUSH SCH (19:18)
[2022-09-01] MEDS: Prenatal Multivitamin with Calcium/Folic Acid/Iron Tab PO SCH (09:08)
[2022-09-01] MEDS: Witch Hazel Medicated Pads 40/Jar TOP PRN (09:08)
[2022-09-01 16:13] VITALS: BP 105/70; PULSE 67
== END 2022-09-01 18:30 | disposition home or self-care (01) | DRG 807 ==
LOC: MW.OB 05:17 → MW.OBCHECK 05:17 → MW.OB 05:37 → MW.OBCHECK 05:37 → OBSVTOIN 18:11 → MW.OB 22:23
PROVIDERS: ADMIT Obstetrics & Gynecology; ATTEND Obstetrics & Gynecology
PROC: 10E0XZZ Delivery of Products of Conception, External Approach (ICD-10-PCS; principal; 2022-08-30)
PROC: 3E033VJ Introduction of Other Hormone into Peripheral Vein, Percutaneous Approach (ICD-10-PCS; 2022-08-30)
PROC: 3E0R3BZ Introduction of Anesthetic Agent into Spinal Canal, Percutaneous Approach (ICD-10-PCS; 2022-08-30)
PROC: 00HU33Z Insertion of Infusion Device into Spinal Canal, Percutaneous Approach (ICD-10-PCS; 2022-08-30)
DX: O36.5930 Maternal care for other known or suspected poor fetal growth, third trimester, not applicable or unspecified (principal); Z37.0 Single live birth; O99.824 Streptococcus B carrier state complicating childbirth; Z20.822 Contact with and (suspected) exposure to COVID-19; Z87.891 Personal history of nicotine dependence; Z3A.38 38 weeks gestation of pregnancy
CPT/HCPCS: 01967; 36415; 51702; 59025; 59409; 82803; 85014; 85018; 85027; 86592; 86850; 86900; 86901; A9270-GY; J2370; J2590; J3370; J3490; J7050; J7120; U0002

== ENCOUNTER 2023-06-12 19:15 | Emergency (ER) | payer MEDICAID ==
[2023-06-12] MEDS ORDERED: Ondansetron 4 MG Tab.DIS PO ONE (19:50)
[2023-06-12 20:00] LABS: APPEARANCE,URINE SLT CLOUDY; GLUCOSE,URINE NEGATIVE (NEGATIVE); KETONES,URINE 15 mg/dL (NEGATIVE); LEUKOCYTE ESTERASE,URINE NEGATIVE (NEGATIVE); NITRITE,URINE NEGATIVE (NEGATIVE); OCCULT BLOOD,URINE NEGATIVE (NEGATIVE); PH,URINE 5.5 (5.0-8.0); PROTEIN,URINE NEGATIVE (NEGATIVE); UROBILINOGEN,URINE 0.2 EU/dL (<2.0)
[2023-06-12 20:06] LABS: AMORPHOUS SEDIMENT,URINE FEW (NEGATIVE); BACTERIA,URINE FEW (NEGATIVE); BILIRUBIN,URINE SMALL (NEGATIVE); COLOR,URINE DARK YELLOW; EPITHELIAL CELLS,URINE MANY (NONE-FEW); MUCUS,URINE MODERATE (NONE-MOD); RBC,URINE 0-2 (0-2/HPF)
[2023-06-12 20:17] LABS: CORONAVIRUS COVID-19 NAA NEGATIVE (NEGATIVE); INFLUENZA A NAA POSITIVE (NEGATIVE); INFLUENZA B NAA NEGATIVE (NEGATIVE); RESPIRATORY SYNCYTIAL VIR NAA NEGATIVE (NEGATIVE)
[2023-06-12 20:47] LABS: CANDIDA DNA PROBE NEGATIVE (NEGATIVE); GARDNERELLA DNA PROBE POSITIVE (NEGATIVE); TRICHOMONAS DNA PROBE NEGATIVE (NEGATIVE)
[2023-06-12] MEDS ORDERED: metroNIDAZOLE 250 MG Tab PO ONE (21:02)
[2023-06-12 21:17] VITALS: BP 97/70; PULSE 98
== END 2023-06-12 21:16 | disposition home or self-care (01) ==
LOC: MW.ED 19:15
DX: O98.511 Other viral diseases complicating pregnancy, first trimester (principal); O23.591 Infection of other part of genital tract in pregnancy, first trimester; Z3A.08 8 weeks gestation of pregnancy; Z88.0 Allergy status to penicillin; Z88.8 Allergy status to other drugs, medicaments and biological substances; Z79.899 Other long term (current) drug therapy; Z20.822 Contact with and (suspected) exposure to COVID-19
CPT/HCPCS: 0241U; 81001; 81025; 87480; 87510; 87660; 99284; A9270

== ENCOUNTER 2023-07-09 17:51 | Emergency (ER) | payer MEDICAID ==
[2023-07-09] MEDS ORDERED: Famotidine 20 MG Tab PO STA (18:04)
[2023-07-09] MEDS ORDERED: methylPREDNISolone Sodium Succinate 125 MG/2 ML SDV IM ONE (18:05)
[2023-07-09] MEDS ORDERED: diphenhydrAMINE 50 MG Cap PO ONE (18:05)
[2023-07-09 18:35] VITALS: BP 126/81; PULSE 86
== END 2023-07-09 18:36 | disposition home or self-care (01) ==
LOC: MW.ED 17:51
DX: L50.9 Urticaria, unspecified (principal); T36.8X5A Adverse effect of other systemic antibiotics, initial encounter; Z88.0 Allergy status to penicillin; Z88.1 Allergy status to other antibiotic agents; Z88.5 Allergy status to narcotic agent
CPT/HCPCS: 96372; 99283; A9270; J2930

== ENCOUNTER 2024-04-29 04:53 | Inpatient (IN) | payer MEDICAID ==
[2024-04-29] MEDS ORDERED: Methylergonovine 0.2 MG/1 ML Amp IM PRN (05:18)
[2024-04-29] MEDS ORDERED: Misoprostol 200 MCG Tab PO PRN (05:18)
[2024-04-29] MEDS ORDERED: Carboprost Tromethamine 250 MCG/1 mL Vial IM PRN (05:18)
[2024-04-29] MEDS ORDERED: Sodium Chloride 0.9% 10 ML Syringe FLUSH PRN (05:18)
[2024-04-29] MEDS ORDERED: Sodium Chloride 0.9% 20 ML SDV IV PRN (05:18)
[2024-04-29] MEDS ORDERED: Ondansetron 4 MG/2 ML SDV IVPUSH PRN (05:18)
[2024-04-29] MEDS ORDERED: Butorphanol 2 MG/ML SDV IVPUSH PRN (05:18)
[2024-04-29] MEDS ORDERED: Sodium Chloride 0.9% 2.5 ML Syringe FLUSH PRN (05:18)
[2024-04-29] MEDS ORDERED: Terbutaline 1 MG/ML SDV SUBCUT PRN (05:18)
[2024-04-29] MEDS ORDERED: Lidocaine 1% 50 ML MDV INJECT PRN (05:18)
[2024-04-29] MEDS ORDERED: Oxytocin/0.9 % Sodium Chloride 30 UNIT/500 ML BAG IV SCH (05:30)
[2024-04-29 06:01] LABS: HEMATOCRIT 32.4 % (37.0-47.0); HEMOGLOBIN 10.3 g/dL (12.0-16.0); MEAN CORPUSCULAR HEMOGLOBIN 26.2 pg (28.0-32.0); MEAN CORPUSCULAR HGB CONC 31.8 g/dL (32.0-36.0); MEAN CORPUSCULAR VOLUME 82.4 fL (83.0-99.0); MEAN PLATELET VOLUME 10.9 fL (9.4-12.3); PLATELET COUNT,PLT 244 K/uL (150-400); RED BLOOD CELL COUNT 3.93 M/uL (4.10-5.30); WHITE BLOOD CELL COUNT,WBC 7.79 K/uL (3.9-11.3)
[2024-04-29] MEDS: Lactated Ringers 1,000 ML IV SCH (06:32)
[2024-04-29] MEDS: Oxytocin/0.9 % Sodium Chloride 30 UNIT/500 ML BAG IV SCH (08:31)
[2024-04-29] MEDS: Ropivacaine HCl/PF 200 ML ONE (11:06)
[2024-04-29] MEDS ORDERED: ePHEDrine 50 MG/ML SDV IVPUSH PRN (15:19)
[2024-04-29] MEDS ORDERED: Phenylephrine HCl In 0.9% NaCl 1 MG/10 ML Syringe IVPUSH PRN (15:19)
[2024-04-29] MEDS: Water For Irrigation,Sterile 1,000 ML Container IRR PRN (15:20)
[2024-04-29] MEDS ORDERED: dexmedeTOMIDine HCl 200 MCG/2 ML SDV EPIDUR SCH (15:30)
[2024-04-29] MEDS ORDERED: Ropivacaine HCl/PF 400 MG in Premix Bag 1 BAG EPIDUR SCH (15:30)
[2024-04-29] MEDS ORDERED: Witch Hazel Medicated Pads 40/Jar TOP PRN (16:04)
[2024-04-29] MEDS ORDERED: Lanolin 100% Cream 7 GM Tube TOP PRN (16:04)
[2024-04-29 16:51] LABS: PH,UMBILICAL ARTERIAL 7.179 (7.18-7.38); PH,UMBILICAL VENOUS 7.307 (7.25-7.45)
[2024-04-29] MEDS: Benzocaine/Menthol 20%-0.5% Spray 78 GM Cannister TOP PRN (17:05)
[2024-04-29] MEDS: Acetaminophen 500 MG Tab PO PRN (17:05)
[2024-04-29] MEDS: Ibuprofen 800 MG Tab PO PRN (21:36)
[2024-04-30 06:27] LABS: HEMATOCRIT 29.6 % (37.0-47.0); HEMOGLOBIN 9.5 g/dL (12.0-16.0)
[2024-04-30] MEDS: Docusate Sodium 100 MG Cap PO PRN (21:02)
[2024-05-01] MEDS: Measles, Mumps & Rubella Vaccine 0.5 ML SDV SUBCUT ONE (16:38)
[2024-05-01 19:42] VITALS: BP 103/62; PULSE 68
== END 2024-05-01 20:12 | disposition home or self-care (01) | DRG 807 ==
LOC: MW.OB 04:53 → OBSVTOIN 15:28 → MW.OB 17:44
PROVIDERS: ADMIT Obstetrics & Gynecology; ATTEND Obstetrics & Gynecology
PROC: 10E0XZZ Delivery of Products of Conception, External Approach (ICD-10-PCS; principal; 2024-04-29)
PROC: 10907ZC Drainage of Amniotic Fluid, Therapeutic from Products of Conception, Via Natural or Artificial Opening (ICD-10-PCS; 2024-04-29)
PROC: 3E0234Z Introduction of Serum, Toxoid and Vaccine into Muscle, Percutaneous Approach (ICD-10-PCS; 2024-04-29)
DX: O99.824 Streptococcus B carrier state complicating childbirth (principal); Z37.0 Single live birth; Z3A.38 38 weeks gestation of pregnancy; Z23 Encounter for immunization
CPT/HCPCS: 01967; 36415; 51702; 59025; 59409; 82803; 85014; 85018; 85027; 86592; 86850; 86900; 86901; 90471; 90707; A9270-GY; J2590; J2795; J3371; J3490; J7050; J7120

== ENCOUNTER 2024-10-02 00:47 | Emergency (ER) | payer MEDICAID ==
[2024-10-02] MEDS: Naloxone 4 MG Nasal Spray NAS ONE (01:04)
[2024-10-02] MEDS ORDERED: Sodium Chloride 0.9% 10 ML Syringe FLUSH PRN (01:06)
[2024-10-02] MEDS ORDERED: Sodium Chloride 0.9% 20 ML SDV IV PRN (01:06)
[2024-10-02] MEDS: Naloxone 4 MG Nasal Spray ONE (01:12)
[2024-10-02] MEDS: Ondansetron 4 MG/2 ML SDV IVPUSH ONE (01:13)
[2024-10-02] MEDS: Sodium Chloride 0.9% 1,000 ML IV ONE (01:13)
[2024-10-02] MEDS: Sodium Chloride 0.9% 2.5 ML Syringe FLUSH PRN (01:16)
[2024-10-02] MEDS: Flumazenil 0.1 MG/ML 5 ML MDV IVPUSH ONE (01:16)
[2024-10-02 01:28] LABS: BASOPHILS ABSOLUTE AUTO 0.04 K/uL (0.00-0.20); BASOPHILS PERCENT AUTO 0.5 % (0.0-1.0); EOSINOPHILS ABSOLUTE AUTO 0.17 K/uL (0.00-0.45); EOSINOPHILS PERCENT AUTO 2.2 % (0.0-6.0); HEMATOCRIT 40.7 % (37.0-47.0); HEMOGLOBIN 13.4 g/dL (12.0-16.0); IMMATURE GRAN ABSOLUTE AUTO 0.04 K/uL (0.00-0.05); IMMATURE GRAN PERCENT AUTO 0.5 % (0.0-0.4); LYMPHOCYTES ABSOLUTE AUTO 3.02 K/uL (1.00-4.80); LYMPHOCYTES PERCENT AUTO 39.1 % (24.0-44.0); MEAN CORPUSCULAR HEMOGLOBIN 28.5 pg (28.0-32.0); MEAN CORPUSCULAR HGB CONC 32.9 g/dL (32.0-36.0); MEAN CORPUSCULAR VOLUME 86.6 fL (83.0-99.0); MONOCYTES ABSOLUTE AUTO 0.59 K/uL (0.00-0.80); MONOCYTES PERCENT AUTO 7.6 % (0.0-8.0); NEUTROPHILS ABSOLUTE AUTO 3.86 K/uL (1.80-7.70); NEUTROPHILS PERCENT AUTO 50.1 % (41.0-71.0); PLATELET COUNT,PLT 292 K/uL (150-400); WHITE BLOOD CELL COUNT,WBC 7.72 K/uL (3.9-11.3)
[2024-10-02 01:48] LABS: A/G RATIO 1.1 (0.9-1.6); ALANINE AMINOTRANSFERASE,ALT 25 IU/L (14-63); ALBUMIN 4.2 g/dL (3.4-5.0); ALKALINE PHOSPHATASE 74 U/L (46-116); ASPARTATE AMNIOTRANSFERASE,AST 20 IU/L (15-37); BILIRUBIN TOTAL 0.2 mg/dL (0.2-1.0); BLOOD UREA NITROGEN,BUN 19 mg/dL (7.0-18.0); CALCIUM 8.5 mg/dL (8.5-10.1); CARBON DIOXIDE,CO2 22.8 mmol/L (21.0-32.0); CHLORIDE,CL 106 mmol/L (98-107); CREATININE 0.7 mg/dL (0.6-1.0); ETHANOL BLOOD MEDICAL 252 mg/dL; GLUCOSE RANDOM 105 mg/dL (74-106); MAGNESIUM 2.1 mg/dL (1.8-2.4); POTASSIUM,K 3.4 mmol/L (3.5-5.1); SODIUM,NA 142 mmol/L (136-145)
[2024-10-02 01:49] LABS: ESTIMATED GFR 124 mL/min (>60)
[2024-10-02 01:50] LABS: INR 1.02 (0.86-1.11); PTT,PARTIAL THROMBOPLSTIN TIME 25.5 SEC (23.9-30.7)
[2024-10-02] MEDS: Naloxone 0.4 MG/ML SDV ONE ×2 (01:52→06:17)
[2024-10-02] MEDS: NALOXONE ONE (01:52)
[2024-10-02] MEDS: Metoclopramide 10 MG/2 ML SDV IVPUSH ONE (01:52)
[2024-10-02] MEDS: NALOXONE IVPUSH ONE ×4 (01:53→03:10)
[2024-10-02] MEDS: Metoclopramide 10 MG/2 ML SDV ONE (02:00)
[2024-10-02 02:03] LABS: APPEARANCE,URINE CLEAR; BILIRUBIN,URINE NEGATIVE (NEGATIVE); COLOR,URINE YELLOW; GLUCOSE,URINE NEGATIVE (NEGATIVE); KETONES,URINE NEGATIVE (NEGATIVE); LEUKOCYTE ESTERASE,URINE NEGATIVE (NEGATIVE); NITRITE,URINE NEGATIVE (NEGATIVE); OCCULT BLOOD,URINE NEGATIVE (NEGATIVE); PROTEIN,URINE NEGATIVE (NEGATIVE); UROBILINOGEN,URINE 0.2 EU/dL (<2.0)
[2024-10-02 02:04] LABS: LACTIC ACID 1.6 mmol/L (0.4-2.0)
[2024-10-02 02:17] LABS: AMPHETAMINES SCREEN, URINE NEGATIVE (CUTOFF=500); BARBITURATE SCREEN,URINE NEGATIVE (CUTOFF=200); BENZODIAZEPINES SCREEN,URINE NEGATIVE (CUTOFF=150); BUPRENORPHINE SCREEN,URINE NEGATIVE (CUTOFF=10); METHADONE SCREEN, URINE NEGATIVE (CUTOFF=200); METHAMPHETAMINES SCREEN, URINE NEGATIVE (CUTOFF=500); OXYCODONE SCREEN,URINE NEGATIVE (CUT0FF=100); PCP SCREEN,URINE NEGATIVE (CUTOFF=25); THC SCREEN,URINE 20 NG/ML NEGATIVE (CUTOFF=50)
[2024-10-02] MEDS: Sodium Chloride 0.9% 1,000 ML IV STA (03:00)
[2024-10-02] MEDS: Potassium Chloride 20 MEQ in Premix Bag 1 BAG IV ONE (03:00)
[2024-10-02] MEDS ORDERED: Phenylephrine HCl 50 MG in Sodium Chloride 0.9% 245 ML IV SCH (04:15)
[2024-10-02] MEDS: Norepinephrine Bit/D5W Premix 250 ML IV SCH (04:20)
[2024-10-02] MEDS: methylPREDNISolone Sodium Succinate 40 MG/1 ML SDV IVPUSH ONE ×2 (04:25)
[2024-10-02] MEDS ORDERED: Rocuronium 100 MG/10 ML MDV IVPUSH ONE (04:50)
[2024-10-02] MEDS ORDERED: Etomidate 2 MG/ML 20 ML SDV IVPUSH ONE (04:50)
[2024-10-02] MEDS: propofoL 1,000 MG/100 ML 100 ML IV SCH (05:00)
[2024-10-02] MEDS: fentaNYL 100 MCG/2 ML SDV IVPUSH ONE ×2 (05:00→05:15)
[2024-10-02] MEDS: fentaNYL 50 MCG/ML SDV IVPUSH ONE (05:17)
[2024-10-02] MEDS: fentaNYL 100 MCG/2 ML SDV ONE ×2 (05:17→05:18)
[2024-10-02] MEDS: Midazolam 5 MG/ML SDV IVPUSH ONE (05:29)
[2024-10-02] MEDS: Midazolam 5 MG/ML SDV ONE (05:31)
[2024-10-02] MEDS: Benzocaine 20% Topical Spray UD MUCMEM ONE (06:28)
[2024-10-02 07:18] VITALS: BP 124/82; PULSE 103
== END 2024-10-02 05:45 ==
LOC: MW.ED 00:47
DX: F10.920 Alcohol use, unspecified with intoxication, uncomplicated (principal); T40.601A Poisoning by unspecified narcotics, accidental (unintentional), initial encounter; Z88.0 Allergy status to penicillin; Z88.5 Allergy status to narcotic agent
CPT/HCPCS: 31500; 36415; 43752; 51702; 70450; 71045; 80053; 80305; 80307; 81003; 82550; 83605; 83735; 84703; 85025; 85610; 85730; 93005; 96361; 96365; 96366; 96367; 96368; 96375; 96376; 99285; J2250; J2310; J2405; J2704; J2765; J2919; J3010; J3480; J3490; J7030; J7050; 93010